=== PATIENT | female | born 1995 ===

== ENCOUNTER 2017-11-16 18:03 | Emergency (ER) | payer OTHER ==
[2017-11-16 18:16] VITALS: BP 125/75
--- NOTE | 2017-11-16 19:36 | UC ---
Eye Complaint HPI - HPI Summary HPI Summary: 22 y/o female presents to the urgent care c/o left eye pain w/ mild yellowish eye drainage since yesterday. Pt report pain is on the medial aspect of left eye near nose at touch. She also has a mild KELLEY. Pain is 6/10. She took Motrin PO to alleviate symptoms around 1600pm. She hasn't noticed any Eye discharge today. Pt denies fever, photophobia, nasal congestion, sore throat, dizziness, periorbital swelling, SOB, chest pain, abdominal pain,N/V/D. - History of Current Complaint Chief Complaint: UCEye Stated Complaint: EYE COMPLAINT Time Seen by Provider: 11/16/17 18:53 Hx Obtained From: Patient Hx Last Menstrual Period: 11/03/2017 ?: No Onset/Duration: Gradual Onset, Lasting Days - 1 day, Still Present Timing: Constant Severity Initially: Mild Severity Currently: Moderate Pain Intensity: 6 Pain Scale Used: 0-10 Numeric Location of Injury: Eye Lid (lower) - left lower eyelid on the medial aspect Character: Dull Aggravating Factor(s): Blinking Alleviating Factor(s): Nothing Associated Signs And Symptoms: Positive: Drainage (Purulent) - yellowish yesterday, Swelling. Negative: Photophobia, Fever - Risk Factors Penetrating Injury Risk Factor: Negative Globe Rupture Risk Factors: Negative Acute Glaucoma Risk Factors: Negative Optic Artery Occlusion Risk Factors: Negative - Allergies/Home Medications Allergies/Adverse Reactions: Allergies Allergy/AdvReac Type Severity Reaction Status Date / Time No Known Allergies Allergy Verified 11/16/17 18:16 Home Medications: Home Medications Norgestimate-Ethinyl Estradiol [Tri-Previfem Tablet] 11/16/17 [History] Omeprazole 20 mg PO 11/16/17 [History] PMH/Surg Hx/FS Hx/Imm Hx Previously Healthy: Yes GI/ History: Gastroesophageal Reflux - Surgical History Surgical History: Yes Surgery Procedure, Year, and Place: knee - Family History Known Family History: Positive: Hypertension, Diabetes Family History: Dyslipidemia - Social History Occupation: Employed Full-time Lives: With Family Alcohol Use: Occasionally Substance Use Type: None Smoking Status (MU): Never Smoked Tobacco Review of Systems Constitutional: Negative Skin: Negative Eyes: Drainage - left eye pain w/ mild lower eyelid swelling ENT: Negative Respiratory: Negative Cardiovascular: Negative Gastrointestinal: Negative Genitourinary: Negative Motor: Negative Neurovascular: Negative Musculoskeletal: Negative Neurological: Negative Psychological: Negative Is Patient Immunocompromised?: No All Other Systems Reviewed And Are Negative: Yes Physical Exam - Summary Physical Exam Summary: Vital Signs Reviewed: Yes General: Well appearing, well nourished adolescent female in no apparent pain distress Eyes: Positive: B/L Conjunctiva clear. Visual acuity: WNL,Visual root: full to confrontation. Medial aspect of the left lower eyelid and left lateral side of the nose w/ mild soft tissue swelling and tenderness w/ discrete induration over the lacrimal duct. PERRLA, EOMI intact w/out limitation or complaint of pain. eyelashes clear. mild tearing , no eye drainage observed for culture. No ciliary flush. No chemosis, No photophobia. Normal fundoscopic exam; no proptosis, exophthalmos, nystagmus. ENT: Positive: Normal ENT inspection, Hearing grossly normal, Pharynx normal, Nasal congestion, Nasal drainage - clear, TMs normal - B/L external ear canal clear , TM's WNL. Negative: Tonsillar swelling, Tonsillar exudate Neck: Positive: Supple, Nontender, No Lymphadenopathy Respiratory: Positive: Chest nontender, Lungs clear, Normal breath sounds, No respiratory distress Cardiovascular: Positive: RRR, No Murmur, Pulses Normal, Brisk Capillary Refill Abdomen Description: Positive: Nontender, No Organomegaly, Soft. Negative: CVA Tenderness (R), CVA Tenderness (L) Bowel Sounds: Positive: Present Musculoskeletal: Positive: Strength Intact, ROM Intact, No Edema Neurological Exam: Normal Psychological Exam: Normal Skin Exam: Normal Triage Information Reviewed: Yes Vital Signs: Initial Vital Signs Temp 98.3 F 11/16/17 18:12 Pulse 75 11/16/17 18:12 Resp 18 11/16/17 18:12 BP 125/75 11/16/17 18:12 Pulse Ox 100 11/16/17 18:12 Eye Complaint Course/Dx - Course Course Of Treatment: 22 y/o female presents to the urgent care c/o left eye pain w/ mild yellowish eye drainage since yesterday. Pt report pain is on the medial aspect of left eye near nose at touch. She also has a mild KELLEY. Pain is 6/ 10. She took Motrin PO to alleviate symptoms around 1600pm. She hasn't noticed any Eye discharge today. Pt denies fever, photophobia, nasal congestion, sore throat, dizziness, periorbital swelling, SOB, chest pain, abdominal pain,N/V/D. Pt w/ Medial aspect of the left lower eyelid and left lateral side of the nose w / mild soft tissue swelling and tenderness w/ discrete induration over the lacrimal duct on examination. Probably Acute Dracocystitis. Pt Rx Erythromycin opthalmic ointment and Tylenol PO,also advised to apply warm compresses and massage the left lacrimal duct with gentle pressure 4-5 times for 10-15min throughout the day. Then apply ABX and if not improvement of symptoms to f/u with laboratory veterinarian DR Bergman for further evaluation and treatment. Cultures were not obtained since no eye discahrge observed. Pt understood and agreed with plan of care. - Differential Dx/Diagnosis Differential Diagnosis/HQI/PQRI: Conjunctivitis, Periorbital Cellulitis, Orbital Cellulitis, Other - stye, acute dacryocystiis Provider Diagnoses: 1- Acute Dacryocistitis. 2-headache Discharge - Sign-Out/Discharge Documenting (check all that apply): Discharge - Discharge Plan Condition: Stable Disposition: HOME Prescriptions: Acetaminophen TAB* [Tylenol TAB*] 650 mg PO Q6H PRN #30 tab PRN Reason: Headache Erythromycin OPTH OINT* [Erythromycin 0.5% OPTH OINT*] 1 applic LEFT EYE TID #1 ophth.oint Patient Education Materials: Blocked Tear Duct (ED) Referrals: [facility] [Outside] - If Needed lJ Bergman MD [Medical Doctor] - 2 Days Additional Instructions: 1-Please apply ophthalmic ointment in your LF eye as directed. Please apply warm compresses and massage the lacrimal duct with gentle pressure 4-5 times for 10-15min throughout the day 2- Take Tylenol PO as directed to alleviate headache 3- If you do not improve or if symptoms worsen please f/u with laboratory veterinarian Dr Bergman in 2 days for further evaluation and treatment - Billing Disposition and Condition Condition: STABLE Disposition: HOME
== END 2017-11-16 19:38 | disposition home or self-care (01) ==
LOC: UCEAST 18:03
DX: H04.322 Acute dacryocystitis of left lacrimal passage (principal); R51 Headache; K21.9 Gastro-esophageal reflux disease without esophagitis
CPT/HCPCS: 99202; G0463